=== PATIENT | male | born 1975 | race Caucasian/White ===

== ENCOUNTER 2017-07-09 05:12 | Emergency (ER) | payer OTHER ==
[~2017-07-09] VITALS: Ht 177.8 cm; Wt 88.5 kg
[~2017-07-09 05:12] MED LIST: ALTACE10 MG PO; BENTYL 20 MG TA20 M1 PO; IBUPROFEN 600600 M1 PO; METFORMIN HCL500 MG PO; NOHOMEMEDICATIONS; NORCO 5-325 TA1 EACH PO; ZOFRAN ODT4 MG PO
[2017-07-09] MEDS ORDERED: LIPITOR 20 MG T20 M1 (05:27)
[2017-07-09] MEDS ORDERED: AMLODIPINE BESY10 MG (05:28)
[2017-07-09] MEDS ORDERED: TRESIBA FL100 UNIT/1 (05:31)
[2017-07-09 06:00] LABS: ABSOLUTE BASOPHILS 0.1 thou/uL (0.0-0.2); ABSOLUTE EOSINOPHILS 0.4 thou/uL (0.0-0.7); ABSOLUTE LYMPHOCYTES 2.9 thou/uL (0.8-5.3); ABSOLUTE MONOCYTES 0.7 thou/uL (0.0-1.2); ABSOLUTE NEUTROPHILS 6.5 thou/uL (1.6-8.1); BASOPHILS 1.2 %; EOSINOPHILS 3.7 %; HEMATOCRIT 44.9 % (42.0-52.0); HEMOGLOBIN 15.3 gm/dL (14.0-18.0); LYMPHOCYTES 27.3 %; MCH 28.4 pg (26.0-34.0); MCV 83.6 fL (80.0-100.0); MONOCYTES 6.4 %; MPV 7.4 fl. (7.2-11.1); NUCLEATED RBCS 0 /100WBC; PLATELET COUNT* 352 thou/uL (150-400); POLYS 61.4 %; RBC 5.37 mil/uL (4.50-6.00); RDW-CV 13.9 % (10.5-14.5); WBC 10.6 thou/uL (4.0-11.0)
[2017-07-09 06:10] LABS: CALCIUM 8.7 mg/dL (8.5-10.1); POTASSIUM 4.1 mmol/L (3.5-5.1)
[2017-07-09 06:14] LABS: ALBUMIN 3.5 g/dL (3.4-5.0); TOTAL BILIRUBIN 0.2 mg/dL (<0.1-1.0); TOTAL PROTEIN 6.8 g/dL (6.4-8.2)
[2017-07-09 06:46] VITALS: BP 157/91
--- NOTE | 2017-07-09 16:28 | EKG ---
[place] [address] ELECTROCARDIOGRAM REPORT Name: EMILE BAUTISTA Room: [facility]#: [id number] Admission: 07/09/17 Attend Phys: Discharge: 07/09/17 Date of : 75 Report #: [id number] THIS REPORT FOR: //name// [facility] ED Test Date: 2017-07-09 Test Time: 05:51:26 Pat Name: EMILE BAUTISTA Department: Room: Gender: M Entry Level Installation Technician: CHAI Avila : 1975 Requested By: Cristopher Romero Order Number: [id number] MD: Dayron Weaver Measurements Intervals [place] Rate: 85 P: 62 [place]: 154 QRS: 10 QRSD: 102 T: 28 QT: 346 QTc: 412 Interpretive Statements Sinus rhythm RSR' in V1 or V2, probably normal variant Compared to ECG 09/27/2016 06:16:17 RSR' in V1 or V2 now present Incomplete right bundle-branch block no longer present Electronically Signed On 07-09-2017 16:28:31 CDT by Dayron Weaver [email or web address] <ELECTRONICALLY SIGNED> By: Dayron Weaver MD, FACC 07/09/17 [id number] [id number] Dayron Weaver MD, [facility] /EPI
== END 2017-07-09 06:47 | disposition home or self-care (01) ==
LOC: M.ERS 05:12
PROVIDERS: Family Medicine
DX: I10 Essential (primary) hypertension (principal); E11.9 Type 2 diabetes mellitus without complications; Z90.49 Acquired absence of other specified parts of digestive tract; Z88.0 Allergy status to penicillin; Z79.4 Long term (current) use of insulin